=== PATIENT | male | born 1975 | race Caucasian/White ===

== ENCOUNTER 2019-01-07 08:16 | Emergency (ER) | payer SELFPAY ==
[~2019-01-07] VITALS: Ht 160 cm; Wt 60.0 kg
[~2019-01-07 08:16] MED LIST: NAPROSYN500 MG PO; NO HOME MEDS; PERCOCET 5/325M1 TAB OR
[2019-01-07 08:52] VITALS: BP 139/92
== END 2019-01-07 09:00 | disposition home or self-care (01) | DRG 125 ==
LOC: ED 08:16
DX: S05.02XA Injury of conjunctiva and corneal abrasion without foreign body, left eye, initial encounter (principal); F17.200 Nicotine dependence, unspecified, uncomplicated; X58.XXXA Exposure to other specified factors, initial encounter; Y93.H2 Activity, gardening and landscaping

== ENCOUNTER 2019-05-01 17:16 | Emergency (ER) | payer OTHER ==
[~2019-05-01] VITALS: Ht 160 cm; Wt 56.0 kg
[2019-05-01 18:22] LABS: HEMATOCRIT 47.1 % (39.0-50.0); HEMOGLOBIN 16.3 g/dl (14.0-18.0); IMMATURE GRANULOCYTES 0.1 % (0.0-5.0); MEAN CELL VOLUME 89.5 fL CALC (80.0-100.0); MEAN CORPUSCULAR HGB CONC 34.6 g/L CALC (32.0-36.0); NEUT# 4.27 thou/uL (1.82-7.42); RED BLOOD COUNT 5.26 mill/uL (4.70-6.10); RED CELL DISTRI WIDTH 13.3 % (11.5-15.5)
[2019-05-01 18:34] LABS: URINE BILIRUBIN - DIPSTICK NEGATIVE (NEGATIVE); URINE BLOOD DIPSTICK NEGATIVE (NEGATIVE); URINE COLOR YELLOW; URINE GLUCOSE - DIPSTICK NEGATIVE (NEGATIVE); URINE KETONE NEGATIVE (NEGATIVE); URINE LEUK ESTERASE NEGATIVE (NEGATIVE); URINE NITRITE - DIPSTICK NEGATIVE (Negative); URINE PROTEIN - DIPSTICK 100 mg/dL (NEG-TRACE); URINE SPECIFIC GRAVITY >=1.030
[2019-05-01 18:39] LABS: BARBITURATES NEGATIVE (NEGATIVE); COCAINE NEGATIVE (NEGATIVE); METHADONE NEGATIVE (NEGATIVE); OXCYCODONE NEGATIVE (NEGATIVE); TETRAHYDROCANNABIONOL POSITIVE (NEGATIVE); TRICYLIC ANTIDEPRESSANTS NEGATIVE (NEGATIVE)
[2019-05-01 18:40] LABS: URINE RBC 0-2 RBC/hpf (0-5); URINE WBC 0-2 WBC/hpf (0-5)
[2019-05-01 18:58] LABS: ANION GAP 16 (6-22 (CALC)); BUN 14 mg/dL (9-20); BUN/CREATININE RATIO 17 (12-20 (CALC)); CARBON DIOXIDE 29 mmol/l (22-30); CHLORIDE 100 mmol/l (95-108); CREATININE 0.8 mg/dL (0.7-1.3); ETHYL ALCOHOL 0 mg/dl (0-30); GFR > 60 ML/MIN (>=60 (CALC)); GFR FOR AFR.AMER. > 60 ML/MIN (>=60 (CALC)); POTASSIUM 5.1 mmol/l (3.5-5.1); SODIUM 139 mmol/l (137-146)
[2019-05-01 19:22] VITALS: BP 128/91
== END 2019-05-01 21:13 | disposition designated cancer center or children's hospital (05) | DRG 880 ==
LOC: ED 17:16
PROVIDERS: Family Medicine
DX: R45.851 Suicidal ideations (principal); F32.9 Major depressive disorder, single episode, unspecified; F17.210 Nicotine dependence, cigarettes, uncomplicated

== ENCOUNTER 2020-01-29 10:39 | Emergency (ER) | payer SELFPAY ==
[~2020-01-29] VITALS: Ht 160 cm; Wt 75.0 kg
[2020-01-29 10:55] VITALS: BP 137/92
== END 2020-01-29 10:55 | disposition left against medical advice (07) | DRG 605 ==
LOC: ED 10:39
DX: S01.81XA Laceration without foreign body of other part of head, initial encounter (principal); F17.200 Nicotine dependence, unspecified, uncomplicated; W22.8XXA Striking against or struck by other objects, initial encounter; Y93.89 Activity, other specified; Y92.89 Other specified places as the place of occurrence of the external cause; Z91.19 Patient's noncompliance with other medical treatment and regimen

== ENCOUNTER 2020-03-26 06:38 | Emergency (ER) | payer SELFPAY ==
[~2020-03-26] VITALS: Ht 160 cm; Wt 60.0 kg
[2020-03-26 08:24] LABS: HEMATOCRIT 43.7 % (39.0-50.0); HEMOGLOBIN 15.1 g/dl (14.0-18.0); IMMATURE GRANULOCYTES 0.5 % (0.0-5.0); MEAN CELL VOLUME 90.5 fL CALC (80.0-100.0); MEAN CORPUSCULAR HGB 31.3 pG CALC (26.0-32.0); MEAN CORPUSCULAR HGB CONC 34.6 g/dL CAL (32.0-36.0); NEUT# 6.5 thou/uL (1.82-7.42); RED BLOOD COUNT 4.83 mill/uL (4.70-6.10); RED CELL DISTRI WIDTH 13.5 % (11.5-15.5)
[2020-03-26 08:43] LABS: ALBUMIN 4.4 g/dL (3.2-5.0); ALKALINE PHOSPHATASE 127 u/l (38-126); ANION GAP 12 (6-22 (CALC)); BILIRUBIN, TOTAL 0.4 mg/dL (0.0-1.4); BUN 16 mg/dL (9-20); BUN/CREATININE RATIO 14 (12-20 (CALC)); CARBON DIOXIDE 27 mmol/l (22-30); CHLORIDE 105 mmol/l (95-108); CREATININE 1.2 mg/dL (0.7-1.3); ETHYL ALCOHOL 0 mg/dl (0-30); GFR > 60 ML/MIN (>=60 (CALC)); GFR FOR AFR.AMER. > 60 ML/MIN (>=60 (CALC)); POTASSIUM 4.3 mmol/l (3.5-5.1); SGOT/AST 34 u/l (17-59); SODIUM 140 mmol/l (137-146); TOTAL PROTEIN 7.3 g/dL (6.3-8.2)
[2020-03-26 08:45] LABS: PROTHROMBIN TIME 9.8 SECONDS (9.0-12.5)
[2020-03-26 08:49] LABS: URINE BILIRUBIN - DIPSTICK NEGATIVE (NEGATIVE); URINE BLOOD DIPSTICK NEGATIVE (NEGATIVE); URINE COLOR YELLOW; URINE GLUCOSE - DIPSTICK NEGATIVE (NEGATIVE); URINE KETONE NEGATIVE (NEGATIVE); URINE LEUK ESTERASE NEGATIVE (NEGATIVE); URINE NITRITE - DIPSTICK NEGATIVE (Negative); URINE PROTEIN - DIPSTICK 100 mg/dL (NEG-TRACE); URINE SPECIFIC GRAVITY >=1.030
[2020-03-26 08:50] LABS: URINE EPITHELIAL CELLS FEW EPI/hpf (0-FEW); URINE MUCUS MODERATE hpf (NONE-FEW)
[2020-03-26 19:27] VITALS: BP 117/72
== END 2020-03-26 19:29 | disposition designated cancer center or children's hospital (05) | DRG 897 ==
LOC: ED 06:38
PROVIDERS: Student in an Organized Health Care Education/Training Program
DX: F15.159 Other stimulant abuse with stimulant-induced psychotic disorder, unspecified (principal); F17.210 Nicotine dependence, cigarettes, uncomplicated; R90.82 White matter disease, unspecified
CPT/HCPCS: A9579; J2060

== ENCOUNTER 2022-07-28 23:04 | Emergency (ER) | payer SELFPAY ==
[~2022-07-28] VITALS: Ht 165.1 cm; Wt 56.0 kg
[2022-07-29] MEDS ORDERED: LORTAB 1010 MG PO (04:29)
[2022-07-29] MEDS ORDERED: AMOXICILLIN500 MG PO (04:29)
[2022-07-29 10:56] VITALS: BP 126/93
== END 2022-07-29 11:01 | disposition home or self-care (01) | DRG 999 ==
LOC: ED 23:04
PROC: 0HQ3XZZ Repair Left Ear Skin, External Approach (ICD-10-PCS; principal; 2022-07-29)
DX: S01.312A Laceration without foreign body of left ear, initial encounter (principal); S22.39XA Fracture of one rib, unspecified side, initial encounter for closed fracture; Y09 Assault by unspecified means; F17.210 Nicotine dependence, cigarettes, uncomplicated

== ENCOUNTER 2022-12-22 20:46 | Inpatient (IN) | payer SELFPAY ==
[~2022-12-22] VITALS: Ht 165.1 cm; Wt 55.0 kg
[2022-12-22] VITALS (11 sets, daily range): BP systolic 103–133; BP diastolic 78–95
[~2022-12-22 20:46] MED LIST changes: +AMOXICILLIN500 MG PO; +LORTAB 1010 MG PO
[2022-12-22 21:36] LABS: BASO% 0.1 % (0-3); HEMATOCRIT 53.4 % (39.0-50.0); HEMOGLOBIN 19.1 g/dl (14.0-18.0); IMMATURE GRANULOCYTES 0.4 % (0.0-5.0); MEAN CELL VOLUME 85.9 fL CALC (80.0-100.0); MEAN CORPUSCULAR HGB 30.7 pG CALC (26.0-32.0); MEAN CORPUSCULAR HGB CONC 35.8 g/dL CAL (32.0-36.0); MONO% 10.4 % (2-13); NEUT# 11.34 thou/uL (1.82-7.42); NEUT% 82.1 % (42-76); RED BLOOD COUNT 6.22 mill/uL (4.70-6.10)
[2022-12-22 21:54] LABS: ALBUMIN 5.9 g/dL (3.2-5.0); BILIRUBIN, TOTAL 1.3 mg/dL (0.2-1.3); CREATININE 8.8 mg/dL (0.7-1.3); POTASSIUM 5.9 mmol/l (3.5-5.1)
[2022-12-23] VITALS (11 sets, daily range): BP systolic 116–136; BP diastolic 74–96
[2022-12-23 03:59] LABS: BASO% 0.1 % (0-3); EOS% 0.1 % (0-8); IMMATURE GRANULOCYTES 0.2 % (0.0-5.0); LYMPH% 11.6 % (15-41); MEAN CELL VOLUME 87.8 fL CALC (80.0-100.0); MEAN CORPUSCULAR HGB 31.4 pG CALC (26.0-32.0); MEAN CORPUSCULAR HGB CONC 35.7 g/dL CAL (32.0-36.0); MONO% 12.4 % (2-13); NEUT# 8.44 thou/uL (1.82-7.42); NEUT% 75.6 % (42-76); RED BLOOD COUNT 4.59 mill/uL (4.70-6.10)
[2022-12-23 04:06] LABS: HEMATOCRIT 40.3 % (39.0-50.0); HEMOGLOBIN 14.4 g/dl (14.0-18.0)
[2022-12-23 04:11] LABS: MAGNESIUM 2.5 mg/dL (1.6-2.3)
[2022-12-23 04:30] LABS: CREATININE 8.1 mg/dL (0.7-1.3); POTASSIUM 5.2 mmol/l (3.5-5.1)
[2022-12-23 05:27] LABS: URINE BILIRUBIN - DIPSTICK NEGATIVE (NEGATIVE); URINE BLOOD DIPSTICK LARGE (NEGATIVE); URINE COLOR YELLOW; URINE GLUCOSE - DIPSTICK NEGATIVE (NEGATIVE); URINE KETONE TRACE mg/dL (NEGATIVE); URINE LEUK ESTERASE NEGATIVE (NEGATIVE); URINE PROTEIN - DIPSTICK 100 mg/dL (NEG-TRACE); URINE SPECIFIC GRAVITY >=1.030; URINE UROBILINOGEN - DIPSTICK 0.2 E.U./dL (0.2)
[2022-12-23 05:37] LABS: URINE NITRITE - DIPSTICK NEGATIVE (Negative)
[2022-12-23 05:39] LABS: URINE AMORPH SEDIMENT FEW hpf (NONE-FER); URINE BACTERIA FEW hpf; URINE SPERM FEW hpf (NONE-RARE); URINE SQUAMOUS EPITHELIAL CELL FEW EPI/hpf (0-FEW)
[2022-12-24 00:40] VITALS: BP 117/80
[2022-12-24 05:04] LABS: BASO% 0.3 % (0-3); EOS% 5.1 % (0-8); HEMATOCRIT 39.6 % (39.0-50.0); HEMOGLOBIN 13.4 g/dl (14.0-18.0); IMMATURE GRANULOCYTES 0.1 % (0.0-5.0); LYMPH% 15.4 % (15-41); MEAN CELL VOLUME 92.1 fL CALC (80.0-100.0); MEAN CORPUSCULAR HGB 31.2 pG CALC (26.0-32.0); MEAN CORPUSCULAR HGB CONC 33.8 g/dL CAL (32.0-36.0); MONO% 12.1 % (2-13); NEUT# 4.58 thou/uL (1.82-7.42); RED BLOOD COUNT 4.3 mill/uL (4.70-6.10); RED CELL DISTRI WIDTH 13.4 % (11.5-15.5)
[2022-12-24 05:29] LABS: POTASSIUM 4.2 mmol/l (3.5-5.1)
[2022-12-24 05:33] LABS: ALBUMIN 3.3 g/dL (3.2-5.0); BILIRUBIN, TOTAL 0.7 mg/dL (0.2-1.3); TOTAL PROTEIN 5.8 g/dL (6.3-8.2)
[2022-12-24 05:46] VITALS: BP 115/79
[2022-12-24 07:15] VITALS: BP 107/68
== END 2022-12-24 09:50 | disposition left against medical advice (07) | DRG 683 ==
LOC: ED 20:46 → ED-I 12-23 00:06 → ED 12-23 00:21 → MS2 12-23 00:22
PROVIDERS: Family Medicine; Nurse Practitioner Family; ADMIT Internal Medicine; ATTEND Internal Medicine
DX: N17.9 Acute kidney failure, unspecified (principal); M62.82 Rhabdomyolysis; E86.0 Dehydration; F15.90 Other stimulant use, unspecified, uncomplicated; F17.210 Nicotine dependence, cigarettes, uncomplicated; Z59.00 Homelessness unspecified
CPT/HCPCS: J1650